=== PATIENT | male | born 1955 | race Caucasian/White ===

== ENCOUNTER 2019-11-15 10:59 | Emergency (ER) | payer BC, OTHER ==
[~2019-11-15] VITALS: Ht 162.6 cm; Wt 70.9 kg
[~2019-11-15 10:59] MED LIST: CHOLESTEROL MED; LEVO100T
[2019-11-15 11:06] VITALS: BP 160/85
[2019-11-15] MEDS ORDERED: NEOSPORIN OINT. PKT 1 PACKET ONE ×2 (11:22→11:26)
[2019-11-15] MEDS ORDERED: DIPH,PERTUSS(ACELL),TET VAC/PF 0.5 ML IM-VACC ONE ×2 (11:26→11:30)
--- NOTE | 2019-11-15 11:35 | NUR ---
TETANUS SHOT. BACITRACIN/BANDAGE BY TECH. AWAITING RAD.
== END 2019-11-15 12:54 | disposition home or self-care (01) ==
LOC: ED 11:23
DX: S40.872A Other superficial bite of left upper arm, initial encounter (principal); E03.9 Hypothyroidism, unspecified; W54.0XXA Bitten by dog, initial encounter; Y93.K1 Activity, walking an animal; Y92.488 Other paved roadways as the place of occurrence of the external cause; Y99.8 Other external cause status
CPT/HCPCS: 90471; 90715; 99283